=== PATIENT | male | born 1945 | race Caucasian/White ===

== ENCOUNTER 2021-10-09 12:50 | Emergency (ER) | payer OTHER ==
[2021-10-09 13:00] VITALS: BP 113/73; PULSE 57; TEMP 97; BMI 28.2
[2021-10-09 13:56] LABS: HEMOGLOBIN 14.5 GM/dL (11.7-16.9); MCH 32.5 pg (25.7-33.7); MCHC 33.8 g/dl (32.0-35.9); MEAN CELL VOLUME 96.2 fl (80-96); MEAN PLT VOLUME 9.2 fl (7.5-11.1); PLATELET COUNT 143 10^3/uL (134-434); RBC 4.47 M/mm3 (4.00-5.60)
[2021-10-09 13:58] LABS: WHITE BLOOD COUNT 36.7 K/mm3 (4.0-10.0)
[2021-10-09] MEDS ORDERED: SODIUM CHLORIDE 0.9% 500 ML INFUS.BAG IV ONE (14:16)
[2021-10-09 14:23] LABS: CHLORIDE 108 mmol/L (98-107); SODIUM 139 mmol/L (136-145)
[2021-10-09 14:25] LABS: ALBUMIN 3.8 g/dl (3.4-5.0); ANION GAP 7 MMOL/L (8-16); BLOOD UREA NITROGEN 19.4 mg/dL (7-18); CO2 23 mmol/L (21-32); GLUCOSE,RANDOM 93 mg/dL (74-106)
[2021-10-09 14:28] LABS: SGOT/AST 31 U/L (15-37); SGPT/ALT 28 U/L (13-61)
[2021-10-09 14:30] LABS: BILIRUBIN,TOTAL 0.8 mg/dL (0.2-1); TOT PROT 6.6 g/dl (6.4-8.2)
[2021-10-09 14:31] LABS: ALK PHOS 57 U/L (45-117); ANISOCYTOSIS 1+; MACROCYTOSIS 0; PLATELET ESTIMATE DECREASED
[2021-10-09 15:27] LABS: PH,URINE 5.5 (5.0-8.0); URINE APPEARANCE CLEAR; URINE BILIRUBIN NEGATIVE (NEGATIVE); URINE COLOR YELLOW; URINE GLUCOSE (UA) NEGATIVE (NEGATIVE); URINE KETONE NEGATIVE (NEGATIVE); URINE LEUK ESTERASE NEGATIVE (NEGATIVE); URINE NITRITE NEGATIVE (NEGATIVE); URINE PROTEIN NEGATIVE (NEGATIVE); URINE UROBILINOGEN 0.2 mg/dL (0.2-1.0)
== END 2021-10-09 16:13 | disposition home or self-care (01) ==
LOC: JER 12:50
DX: C91.10 Chronic lymphocytic leukemia of B-cell type not having achieved remission (principal); R55 Syncope and collapse
CPT/HCPCS: 36415; 71045-TC-FY; 80053; 81003; 82962; 84484; 85025; 93005; 93010; 99284-25; C9803; U0003; U0005